=== PATIENT | female | born 2000 | race Caucasian/White ===

== ENCOUNTER 2019-01-28 09:31 | Emergency (ER) | payer BC, OTHER ==
[~2019-01-28] VITALS: Ht 160 cm; Wt 79.1 kg
[2019-01-28] MEDS ORDERED: OMEP-218 (09:38)
[2019-01-28 10:24] LABS: HEMATOCRIT 40.2 % (36.0-47.0); HEMOGLOBIN 13.4 g/dl (12.0-15.5); MEAN CORPUSCULAR HEMOGLOBIN 27.9 pg (27.0-33.0); MEAN CORPUSCULAR HGB CONC 33.3 g/dl (32.0-36.5); MEAN CORPUSCULAR VOLUME 83.8 fl (80.0-96.0); PLATELET COUNT, AUTOMATED 313 10^3/uL (150-450); WHITE BLOOD COUNT 5.7 10^3/uL (4.0-10.0)
[2019-01-28 10:38] LABS: AMPHETAMINES LEVEL URINE NEGATIVE (NEGATIVE); BARBITURATES URINE NEGATIVE (NEGATIVE); BENZODIAZEPINES URINE NEGATIVE (NEGATIVE); CANNABINOIDS URINE NEGATIVE (NEGATIVE); COCAINE METABOLITE URINE NEGATIVE (NEGATIVE); METHADONE URINE NEGATIVE (NEGATIVE); OPIATES URINE NEGATIVE (NEGATIVE); PHENCYCLIDINE URINE NEGATIVE (NEGATIVE)
[2019-01-28 11:17] LABS: ACETAMINOPHEN LEVEL < 2.0 UG/ML (10.0-30.0); ALBUMIN 3.8 GM/DL (3.2-5.2); ALT/SGPT 29 U/L (12-78); BILIRUBIN,DIRECT < 0.1 MG/DL (0.0-0.2); BILIRUBIN,TOTAL 0.3 MG/DL (0.2-1.0); BLOOD UREA NITROGEN 9 MG/DL (7-18); CALCIUM LEVEL 9.4 MG/DL (8.5-10.1); CARBON DIOXIDE LEVEL 24 MEQ/L (21-32); CHLORIDE LEVEL 109 MEQ/L (98-107); CREATININE FOR GFR 0.77 MG/DL (0.55-1.30); ETHYL ALCOHOL (ETHANOL) 0.003 % (0.000-0.010); GLUCOSE, FASTING 104 MG/DL (70-100); POTASSIUM SERUM 4.2 MEQ/L (3.5-5.1); SALICYLATE LEVEL < 1.7 MG/DL (5.0-30.0); SODIUM LEVEL 141 MEQ/L (136-145); THYROID STIMULATING HORMONE 0.364 uIU/ML (0.463-3.98); TOTAL PROTEIN 7.8 GM/DL (6.4-8.2)
[2019-01-28 11:47] LABS: HCG, SERUM QUALITATIVE NEGATIVE (NEGATIVE)
[2019-01-28 13:23] VITALS: BP 132/76
[2019-01-30] MEDS ORDERED: MECL-68 PO (17:23)
== END 2019-01-28 13:23 | disposition home or self-care (01) ==
LOC: M ED 09:31
DX: F33.9 Major depressive disorder, recurrent, unspecified (principal); Z88.1 Allergy status to other antibiotic agents
CPT/HCPCS: 36415; 80048; 80076; 80307; 84443; 84703; 85027; 99284; G0480

== ENCOUNTER 2019-01-30 08:07 | Emergency (ER) | payer OTHER ==
[~2019-01-30] VITALS: Ht 160 cm; Wt 77.3 kg
[~2019-01-30 08:07] MED LIST: OMEP-218
[2019-01-30] MEDS ORDERED: NS 1,000 ML IV SCH (08:34)
[2019-01-30] MEDS ORDERED: ALYA1TAB PO (08:53)
[2019-01-30 09:04] LABS: BASO # 0.1 10^3/uL (0.0-0.2); BASO % 1.3 % (0.0-1.0); EOS # 0.2 10^3/uL (0.0-0.50); EOS % 6.1 % (0.0-3.0); HEMATOCRIT 40.2 % (36.0-47.0); HEMOGLOBIN 13.3 g/dl (12.0-15.5); LYMPH % 25.2 % (24.0-44.0); MEAN CORPUSCULAR HEMOGLOBIN 27.8 pg (27.0-33.0); MEAN CORPUSCULAR HGB CONC 33.1 g/dl (32.0-36.5); MEAN CORPUSCULAR VOLUME 84.1 fl (80.0-96.0); MONO # 0.4 10^3/uL (0.0-0.8); MONO % 10.2 % (0.0-5.0); NEUTROPHILS # 2.3 10^3/uL (1.8-7.7); NEUTROPHILS % 57.2 % (36.0-66.0); PLATELET COUNT, AUTOMATED 251 10^3/uL (150-450); RED BLOOD COUNT 4.78 10^6/uL (4.00-5.40); WHITE BLOOD COUNT 3.9 10^3/uL (4.0-10.0)
--- NOTE | 2019-01-30 09:26 | REP ---
Clinical: Altered mental status . Comparison: None . Findings: The ventricles, sulci, and cisterns are normal in position and appearance. Salvador-white differentiation is maintained. No acute intracranial hemorrhage, mass/mass effect, pathology or trauma/injury. No evidence for acute infarction. No extra-axial fluid collection. Calvarium is intact. Paranasal sinuses and mastoid air cells are clear. Impression: Normal noncontrast head CT. No evidence for acute intracranial pathology or trauma/injury. Electronically Signed by Howie Lacey MD 01/30/2019 09:16 A
[2019-01-30 09:30] LABS: ACETAMINOPHEN LEVEL < 2.0 UG/ML (10.0-30.0); ALBUMIN 3.6 GM/DL (3.2-5.2); ALT/SGPT 25 U/L (12-78); BILIRUBIN,DIRECT < 0.1 MG/DL (0.0-0.2); BILIRUBIN,TOTAL 0.3 MG/DL (0.2-1.0); BLOOD UREA NITROGEN 9 MG/DL (7-18); CALCIUM LEVEL 8.8 MG/DL (8.5-10.1); CARBON DIOXIDE LEVEL 24 MEQ/L (21-32); CHLORIDE LEVEL 108 MEQ/L (98-107); CK-MB VALUE MASS < 1.0 NG/ML (<3.6); CPK CREATINE PHOSPHOKINASE 118 U/L (26-192); CREATININE FOR GFR 0.83 MG/DL (0.55-1.30); ETHYL ALCOHOL (ETHANOL) < 0.003 % (0.000-0.010); GLUCOSE, FASTING 104 MG/DL (70-100); MB/CK RELATIVE INDEX 0.85 (< OR =4); POTASSIUM SERUM 4.3 MEQ/L (3.5-5.1); SALICYLATE LEVEL < 1.7 MG/DL (5.0-30.0); SODIUM LEVEL 138 MEQ/L (136-145); THYROID STIMULATING HORMONE 0.566 uIU/ML (0.463-3.98); TOTAL PROTEIN 7.1 GM/DL (6.4-8.2); TROPONIN I < 0.02 NG/ML (< 0.10)
[2019-01-30 09:31] LABS: OSMOLALITY SERUM 287 MOSM/KG (275-295)
[2019-01-30] MEDS ORDERED: NS 1,000 ML IV ONE (11:00)
--- NOTE | 2019-01-30 12:51 | REP ---
MRI brain without contrast: History: Visual changes and vertigo. . Comparison study: Comparison head CT study is from earlier today. Technique: Axial and sagittal imaging planes are utilized for T1 and T2-weighted scans. Sequences include spin-echo, fast spin echo, FLAIR, and diffusion weighted sequences. MRI findings: No bony calvarial lesion is seen. Craniocervical junction and upper cervical cord are normal in appearance. There is no MR evidence of significant paranasal sinus disease. No intraorbital abnormality is seen. The lateral, third, and fourth ventricles are normal in size and position. Salvador-white differentiation pattern is intact above and below the tentorium. There is no evidence of intracranial hemorrhage. No mass, infarction, extra-axial fluid collection or midline shift is seen. No abnormal white matter lesion is seen. Impression: Negative noncontrast brain MRI study. Electronically Signed by Berto Wallace MD 01/30/2019 12:43 P
--- NOTE | 2019-01-30 12:52 | REP ---
MR angiography the brain without contrast: History: Vertigo and visual changes. Technique: 3-D [id number] MR angiography of the brain is acquired in the usual fashion and maximal intensity projection images were generated in rotational format about the vertical and horizontal axes. In addition, source axial T1-weighted images are viewed in cine mode. MR angiographic findings: The distal vertebral arteries are patent and co-dominant. Basilar artery is a little tortuous but widely patent. The posterior cerebral and superior cerebellar vessels are normal and symmetric. The distal internal carotid arteries are unremarkable. Anterior and middle cerebral arteries appear intact. There is no visible alonzo aneurysm or arteriovenous malformation. Impression: Unremarkable MR angiography the brain. Electronically Signed by Berto Wallace MD 01/30/2019 12:44 P
[2019-01-30] MEDS ORDERED: MECLIZINE 25 MG TABLET PO ONE (13:45)
[2019-01-30 15:50] LABS: AMPHETAMINES LEVEL URINE NEGATIVE (NEGATIVE); BARBITURATES URINE NEGATIVE (NEGATIVE); BENZODIAZEPINES URINE NEGATIVE (NEGATIVE); CANNABINOIDS URINE NEGATIVE (NEGATIVE); COCAINE METABOLITE URINE NEGATIVE (NEGATIVE); METHADONE URINE NEGATIVE (NEGATIVE); OPIATES URINE NEGATIVE (NEGATIVE); PHENCYCLIDINE URINE NEGATIVE (NEGATIVE)
--- NOTE | 2019-01-30 16:23 | REP ---
MRI lumbar spine without contrast: History: Urinary retention. Technique: Sagittal and axial T1 and T2-weighted scans are acquired in the usual fashion with and without fat saturation. Sequences include spin echo, turbo spin-echo, and STIR imaging sequences. MRI findings: Lumbar vertebral body heights are preserved. Alignment is normal. No fracture or collapse is seen. Pedicles and posterior elements are intact. There is no evidence of spondylolysis or spondylolisthesis. The conus medullaris is normal in position and appearance at T12. No extraspinal abnormality is appreciated. Disc spaces are maintained in height and signal intensity. No lumbar disc herniation is seen. Facets are unremarkable. No neural foraminal encroachment is appreciated. Impression: Normal MRI lumbar spine. Electronically Signed by Berto Wallace MD 01/30/2019 04:44 P
[2019-01-30] MEDS ORDERED: MECL1TAB31 PO (17:23)
[2019-01-30 18:00] VITALS: BP 131/70
--- NOTE | 2019-01-30 20:04 | ECGEPIP ---
[facility] - ED Test Date: 2019-01-30 Pat Name: AUTUMN BENSON Department: Room: - Gender: Female [employer] Drawer In: ab : 2000 Requested By: Marla Muir Order Number: [id number] Reading MD: Bravo Brandon Measurements Intervals [place] Rate: 108 P: 70 [place]: 154 QRS: 53 QRSD: 96 T: 14 QT: 302 QTc: 406 Interpretive Statements SINUS TACHYCARDIA NONSPECIFIC T-WAVE ABNORMALITY NO PRIORS FOR COMPARISON Electronically Signed on 01-30-2019 20:03:46 EDT by Bravo Brandon
[2019-02-01 14:13] LABS: Lyme Disease IgG/IgM Antibodie <0.91 ISR (0.00-0.90); Lyme Disease IgM Ab Quantitati <0.80 index (0.00-0.79)
== END 2019-01-30 18:09 | disposition home or self-care (01) ==
LOC: EDBD 08:07 → M ED 08:07
DX: R42 Dizziness and giddiness (principal); Z79.899 Other long term (current) drug therapy; Z79.3 Long term (current) use of hormonal contraceptives; Z88.1 Allergy status to other antibiotic agents
CPT/HCPCS: 36415; 70450; 70544; 70551; 72148; 80048; 80076; 80307; 82140; 82550; 82553; 83605; 83930; 84443; 84484; 84702; 85025; 86617; 93005; 93041; 94760; 99285; G0480

== ENCOUNTER → 2019-02-03 | Outpatient (REF) | payer OTHER ==
[~2019-02-03] MED LIST changes: +ALYA1TAB PO; +MECL-68 PO
[2019-02-03 20:54] LABS: RHEUMATOID FACTOR QUANT < 10.0 IU/ML (<15.0); TOTAL PROTEIN 7.4 GM/DL (6.4-8.2)
[2019-02-03 21:03] LABS: VITAMIN B12 LEVEL 648 PG/ML
[2019-02-03 21:36] LABS: FOLATE 15.2 NG/ML
[2019-02-04 14:47] LABS: ALBUMIN % 55.4 % (55.8-66.1); ALPHA-1-GLOBULINS 0.37 GM/DL (0.17-0.41); ALPHA-2-GLOBULINS % 12.1 % (7.1-11.8); BETA-1-GLOBULINS 0.57 GM/DL (0.28-0.60); BETA-1-GLOBULINS % 7.7 % (4.7-7.2); BETA-2-GLOBULINS 0.34 GM/DL (0.19-0.55); BETA-2-GLOBULINS % 4.6 % (3.2-6.5); GAMMA GLOBULIN % 15.2 % (11.1-18.8); GAMMA GLOBULINS 1.12 GM/DL (0.65-1.58)
[2019-02-12 14:29] LABS: ANTI DS-DNA AB <1:10 titer (.); ANTINUCLEAR ANTIBODIES DIRECT Negative (Negative); CERULOPLASMIN 41.6 mg/dL (19.0-39.0); COPPER PLASMA 183 ug/dL (72-166); LEAD BLOOD ADULT <1 ug/dL (0-4); MERCURY LEVEL None Detected ug/L (0.0-14.9); SJOGREN'S ANTI SS-A <0.2 AI (0.0-0.9); SJOGREN'S ANTI SS-B <0.2 AI (0.0-0.9); VITAMIN B1 LEVEL WHOLE BLOOD 141.5 nmol/L (66.5-200.0); VITAMIN B6,PYRIDOXAL PHOSPHATE 12.7 ug/L (2.0-32.8); VITAMIN E(ALPHA TOCOPHEROL) 9.6 mg/L (5.0-13.2); VITAMIN E(GAMMA TOCOPHEROL) 1.5 mg/L (0.8-3.8)
== END ==
LOC: M LABNEURO 14:07
PROVIDERS: ATTEND Psychiatry & Neurology Neurology
DX: M10.9 Gout, unspecified (principal); R42 Dizziness and giddiness; R26.89 Other abnormalities of gait and mobility

== ENCOUNTER → 2019-03-05 | Outpatient (REF) | payer OTHER ==
[2019-03-05 19:48] LABS: CHLAMYDIA DNA AMPLIFICATION NEGATIVE (NEGATIVE); GC DNA AMPLIFICATION NEGATIVE (NEGATIVE)
== END ==
LOC: M LAB REF 16:32
PROVIDERS: ATTEND Nurse Practitioner Family
DX: R30.0 Dysuria (principal)

== ENCOUNTER 2019-05-18 11:30 | Emergency (ER) | payer OTHER ==
[~2019-05-18] VITALS: Ht 160 cm; Wt 80.7 kg
[2019-05-18] MEDS ORDERED: SPRI28TA PO (11:36)
[2019-05-18] MEDS ORDERED: CITA10TA5 PO (11:36)
[2019-05-18] MEDS ORDERED: diphenhydrAMINE INJ 50MG/ML VIAL (J1200) IV STA (11:47)
[2019-05-18] MEDS ORDERED: methylPREDNISolone INJ 125 MG/2 ML VIAL (J2930) As Ordered ONE (11:49)
[2019-05-18] MEDS ORDERED: diphenhydrAMINE INJ 50MG/ML VIAL (J1200) As Ordered ONE (11:49)
[2019-05-18] MEDS ORDERED: FAMOTIDINE INJ 20MG/2ML VIAL (S0028) As Ordered ONE (11:50)
[2019-05-18] MEDS ORDERED: FAMOTIDINE INJ 20MG/2ML VIAL (S0028) IVP ONE (12:00)
[2019-05-18] MEDS ORDERED: methylPREDNISolone INJ 125 MG/2 ML VIAL (J2930) IV ONE (12:00)
[2019-05-18] MEDS ORDERED: ONDANSETRON 4MG/2ML VIAL (J2405) As Ordered ONE (12:30)
[2019-05-18] MEDS ORDERED: ONDANSETRON 4MG/2ML VIAL (J2405) IV ONE (13:00)
[2019-05-18] MEDS ORDERED: ALPRAZolam 0.25 MG TAB PO ONE (13:30)
[2019-05-18] MEDS ORDERED: BENA25CA4 PO (13:59)
[2019-05-18 14:18] VITALS: BP 101/56
== END 2019-05-18 14:19 | disposition home or self-care (01) ==
LOC: M ED 11:30
DX: T78.1XXA Other adverse food reactions, not elsewhere classified, initial encounter (principal); Y92.9 Unspecified place or not applicable; Y93.9 Activity, unspecified; F32.9 Major depressive disorder, single episode, unspecified; Z79.899 Other long term (current) drug therapy; Z88.1 Allergy status to other antibiotic agents
CPT/HCPCS: 96374; 96375; 99284; J1200; J2405; J2930

== ENCOUNTER 2019-05-25 21:57 | Emergency (ER) | payer OTHER ==
[~2019-05-25] VITALS: Ht 160 cm; Wt 81.8 kg
[~2019-05-25 21:57] MED LIST changes: +BENA25CA4 PO; +CITA10TA5 PO; +SPRI28TA PO
[2019-05-25] MEDS ORDERED: methylPREDNISolone INJ 125 MG/2 ML VIAL (J2930) IV ONE (22:15)
[2019-05-25] MEDS ORDERED: NS 1,000 ML IV ONE (22:15)
[2019-05-25] MEDS ORDERED: FAMOTIDINE INJ 20MG/2ML VIAL (S0028) IVP ONE (22:15)
[2019-05-25] MEDS ORDERED: hydrOXYzine 25 MG TAB PO STA (23:26)
[2019-05-26] MEDS ORDERED: PRED20TA PO (01:09)
[2019-05-26 01:16] VITALS: BP 131/54
== END 2019-05-26 01:22 | disposition home or self-care (01) ==
LOC: M ED 21:57
DX: T78.1XXA Other adverse food reactions, not elsewhere classified, initial encounter (principal); J44.9 Chronic obstructive pulmonary disease, unspecified; Z79.899 Other long term (current) drug therapy
CPT/HCPCS: 96374; 96375; 99284; J2930

== ENCOUNTER 2019-06-02 23:12 | Emergency (ER) | payer OTHER ==
[~2019-06-02] VITALS: Ht 160 cm; Wt 180.0 kg
[~2019-06-02 23:12] MED LIST changes: +PRED20TA PO
[2019-06-03] MEDS ORDERED: NS 1,000 ML IV ONE
[2019-06-03] MEDS ORDERED: FAMOTIDINE IV BAG 20 MG in IV 1 EA IV ONE ×2
[2019-06-03] MEDS ORDERED: diphenhydrAMINE INJ 50MG/ML VIAL (J1200) IV ONE
[2019-06-03] MEDS ORDERED: methylPREDNISolone INJ 125 MG/2 ML VIAL (J2930) IV ONE
[2019-06-03] MEDS ORDERED: PRED20TA PO (03:05)
[2019-06-03 03:20] VITALS: BP 124/73
== END 2019-06-03 03:33 | disposition home or self-care (01) ==
LOC: M ED 23:12
DX: L29.9 Pruritus, unspecified (principal); R22.0 Localized swelling, mass and lump, head; T78.40XA Allergy, unspecified, initial encounter; X58.XXXA Exposure to other specified factors, initial encounter; Y92.89 Other specified places as the place of occurrence of the external cause; Z88.1 Allergy status to other antibiotic agents; Z79.3 Long term (current) use of hormonal contraceptives; Z91.011 Allergy to milk products
CPT/HCPCS: 96365; 96366; 96375; 99285; J1200; J2930

== ENCOUNTER → 2019-06-11 | Outpatient (CLI) | payer OTHER ==
[2019-06-11 13:54] LABS: BASO % 0.2 % (0.0-1.0); EOS # 0.1 10^3/uL (0.0-0.5); EOS % 2.9 % (0.0-3.0); HEMATOCRIT 43.4 % (36.0-47.0); HEMOGLOBIN 13.8 g/dl (12.0-15.5); LYMPH # 1.6 10^3/uL (1.5-5.0); LYMPH % 33.9 % (24.0-44.0); MEAN CORPUSCULAR HEMOGLOBIN 27.2 pg (27.0-33.0); MEAN CORPUSCULAR HGB CONC 31.8 g/dl (32.0-36.5); MEAN CORPUSCULAR VOLUME 85.6 fl (80.0-96.0); MONO # 0.4 10^3/uL (0.0-0.8); MONO % 9.1 % (0.0-5.0); NEUTROPHILS # 2.6 10^3/uL (1.5-8.5); NEUTROPHILS % 53.7 % (36.0-66.0); PLATELET COUNT, AUTOMATED 239 10^3/uL (150-450); RED BLOOD COUNT 5.07 10^6/uL (4.00-5.40); WHITE BLOOD COUNT 4.8 10^3/uL (4.0-10.0)
[2019-06-11 14:08] LABS: ALBUMIN 3.7 GM/DL (3.2-5.2); ALT/SGPT 24 U/L (12-78); BILIRUBIN,TOTAL 0.5 MG/DL (0.2-1.0); BLOOD UREA NITROGEN 14 MG/DL (7-18); CALCIUM LEVEL 9.4 MG/DL (8.5-10.1); CARBON DIOXIDE LEVEL 26 MEQ/L (21-32); CHLORIDE LEVEL 107 MEQ/L (98-107); COMPLEMENT C3 132 MG/DL (90-180); COMPLEMENT C4 23 MG/DL (10-40); CREATININE FOR GFR 0.71 MG/DL (0.55-1.30); GLUCOSE, FASTING 94 MG/DL (70-100); POTASSIUM SERUM 4.5 MEQ/L (3.5-5.1); RHEUMATOID FACTOR QUANT < 10.0 IU/ML (<15.0); SODIUM LEVEL 139 MEQ/L (136-145); THYROID STIMULATING HORMONE 0.221 uIU/ML (0.463-3.98); THYROXINE (T4) 11.4 UG/DL (6.0-11.6); TOTAL PROTEIN 7.1 GM/DL (6.4-8.2)
[2019-06-11 14:11] LABS: THYROID PEROXIDASE ANTIBODY < 28.0 U/ML (<60.0)
[2019-06-11 14:12] LABS: THYROGLOBULIN ANTIBODY 15.2 U/ML (<60.0)
[2019-06-11 14:33] LABS: ERYTHROCYTE SEDIMENTATION RATE 7 mm/hr (0-20)
== END ==
LOC: M SMT 11:00
PROVIDERS: ATTEND Allergy & Immunology Allergy
DX: L50.1 Idiopathic urticaria (principal)

== ENCOUNTER 2019-10-05 17:52 | Emergency (ER) | payer BC, OTHER ==
[~2019-10-05] VITALS: Ht 160 cm; Wt 81.4 kg
[2019-10-05 17:52] VITALS: BP 141/85
[~2019-10-05 17:52] MED LIST changes: -MECL-68 PO; +MECL1TAB31 PO
--- NOTE | 2019-10-06 08:03 | REP ---
RIGHT KNEE, FIVE VIEWS: There is no evidence of an acute fracture, dislocation or intrinsic bone disease. There is some mild irregularity of the medial patellar facet, which is likely postsurgical as per patient history. IMPRESSION: No fracture or dislocation. Electronically Signed by Godwin Salvador MD 10/06/2019 01:22 P
== END 2019-10-05 20:01 | disposition home or self-care (01) ==
LOC: M ED 17:52
DX: S80.01XA Contusion of right knee, initial encounter (principal); W01.0XXA Fall on same level from slipping, tripping and stumbling without subsequent striking against object, initial encounter; Y92.019 Unspecified place in single-family (private) house as the place of occurrence of the external cause; K21.9 Gastro-esophageal reflux disease without esophagitis; Z88.1 Allergy status to other antibiotic agents; Z91.011 Allergy to milk products; Z79.899 Other long term (current) drug therapy

== ENCOUNTER 2020-02-02 18:48 | Emergency (ER) | payer BC, SELFPAY ==
[~2020-02-02] VITALS: Ht 160 cm; Wt 81.0 kg
[2020-02-02] MEDS ORDERED: NORT1TAB3 (18:54)
[2020-02-02] MEDS ORDERED: HYDR-3363 (18:54)
[2020-02-02] MEDS ORDERED: NS 1,000 ML IV ONE (20:15)
[2020-02-02 20:41] LABS: BASO % 0.7 % (0.0-1.0); EOS # 0.2 10^3/uL (0.0-0.5); EOS % 3.9 % (0.0-3.0); HEMATOCRIT 42.4 % (36.0-47.0); HEMOGLOBIN 14.2 g/dl (12.0-15.5); LYMPH % 36.1 % (24.0-44.0); MEAN CORPUSCULAR HEMOGLOBIN 28.7 pg (27.0-33.0); MEAN CORPUSCULAR HGB CONC 33.5 g/dl (32.0-36.5); MEAN CORPUSCULAR VOLUME 85.8 fl (80.0-96.0); MONO # 0.5 10^3/uL (0.0-0.8); MONO % 8.7 % (0.0-5.0); NEUTROPHILS # 2.7 10^3/uL (1.5-8.5); NEUTROPHILS % 50.4 % (36.0-66.0); PLATELET COUNT, AUTOMATED 227 10^3/uL (150-450); RED BLOOD COUNT 4.94 10^6/uL (4.00-5.40); WHITE BLOOD COUNT 5.4 10^3/uL (4.0-10.0)
[2020-02-02 20:57] LABS: ALBUMIN 3.7 GM/DL (3.2-5.2); BILIRUBIN,DIRECT 0.2 MG/DL (0.0-0.2); BILIRUBIN,TOTAL 0.4 MG/DL (0.2-1.0); TOTAL PROTEIN 7.4 GM/DL (6.4-8.2)
[2020-02-02 22:34] VITALS: BP 124/75
== END 2020-02-02 22:40 | disposition home or self-care (01) ==
LOC: M ED 18:48
DX: R30.0 Dysuria (principal); R31.29 Other microscopic hematuria; Z79.899 Other long term (current) drug therapy; Z88.8 Allergy status to other drugs, medicaments and biological substances

== ENCOUNTER → 2020-05-24 | Outpatient (CLI) | payer OTHER ==
[~2020-05-24] MED LIST changes: +HYDR-3363; +NORT1TAB3
[2020-05-24 11:32] LABS: HEMATOCRIT 42.1 % (36.0-47.0); HEMOGLOBIN 13.7 g/dl (12.0-15.5); MEAN CORPUSCULAR HEMOGLOBIN 28.8 pg (27.0-33.0); MEAN CORPUSCULAR HGB CONC 32.5 g/dl (32.0-36.5); MEAN CORPUSCULAR VOLUME 88.6 fl (80.0-96.0); PLATELET COUNT, AUTOMATED 255 10^3/uL (150-450); RED BLOOD COUNT 4.75 10^6/uL (4.00-5.40); WHITE BLOOD COUNT 6.3 10^3/uL (4.0-10.0)
[2020-05-24 12:19] LABS: ALBUMIN 3.7 GM/DL (3.2-5.2); ALT/SGPT 24 U/L (12-78); BILIRUBIN,TOTAL 0.3 MG/DL (0.2-1.0); BLOOD UREA NITROGEN 15 MG/DL (7-18); CALCIUM LEVEL 8.9 MG/DL (8.5-10.1); CARBON DIOXIDE LEVEL 27 MEQ/L (21-32); CHLORIDE LEVEL 107 MEQ/L (98-107); GLUCOSE, FASTING 75 MG/DL (70-100); SODIUM LEVEL 140 MEQ/L (136-145); THYROID STIMULATING HORMONE 0.445 uIU/ML (0.463-3.98); TOTAL PROTEIN 7.2 GM/DL (6.4-8.2)
== END ==
LOC: M LAB 08:55
PROVIDERS: ATTEND Internal Medicine
DX: F33.1 Major depressive disorder, recurrent, moderate (principal); F41.9 Anxiety disorder, unspecified; Z79.899 Other long term (current) drug therapy

== ENCOUNTER 2021-03-05 08:19 | Emergency (ER) | payer OTHER ==
[~2021-03-05] VITALS: Ht 162.6 cm; Wt 98.6 kg
[~2021-03-05 08:19] MED LIST changes: -CITA10TA5 PO; +CITA10TA7 PO; +OMEP-173; -OMEP-218
[2021-03-05] MEDS ORDERED: KELN1TAB (08:27)
[2021-03-05] MEDS ORDERED: CITA20TA6 (08:27)
[2021-03-05] MEDS ORDERED: ONDANSETRON 4MG/2ML VIAL IV ONE (09:05)
[2021-03-05] MEDS ORDERED: NS 1,000 ML IV ONE (09:05)
[2021-03-05 09:44] LABS: BASO # 0.1 10^3/uL (0.0-0.2); BASO % 0.7 % (0.0-1.0); EOS # 0.3 10^3/uL (0.0-0.5); EOS % 3.9 % (0.0-3.0); HEMOGLOBIN 14.5 g/dl (12.0-15.5); LYMPH # 2.3 10^3/uL (1.5-5.0); LYMPH % 25.9 % (24.0-44.0); MEAN CORPUSCULAR HEMOGLOBIN 29.1 pg (27.0-33.0); MEAN CORPUSCULAR HGB CONC 33.7 g/dl (32.0-36.5); MEAN CORPUSCULAR VOLUME 86.3 fl (80.0-96.0); MONO # 0.5 10^3/uL (0.0-0.8); MONO % 6.1 % (2.0-8.0); NEUTROPHILS # 5.6 10^3/uL (1.5-8.5); NEUTROPHILS % 63.2 % (36.0-66.0); PLATELET COUNT, AUTOMATED 261 10^3/uL (150-450); RED BLOOD COUNT 4.98 10^6/uL (4.00-5.40); WHITE BLOOD COUNT 8.8 10^3/uL (4.0-10.0)
[2021-03-05 10:21] LABS: ALT/SGPT 33 U/L (12-78); BILIRUBIN,DIRECT < 0.1 MG/DL (0.0-0.2); BILIRUBIN,TOTAL 0.3 MG/DL (0.2-1.0); BLOOD UREA NITROGEN 19 MG/DL (7-18); CALCIUM LEVEL 9.7 MG/DL (8.5-10.1); CARBON DIOXIDE LEVEL 28 MEQ/L (21-32); CHLORIDE LEVEL 106 MEQ/L (98-107); CREATININE FOR GFR 0.69 MG/DL (0.55-1.30); GLOMERULAR FILTRATION RATE > 60.0 (>60); GLUCOSE, FASTING 96 MG/DL (70-100); LIPASE 111 U/L (73-393); POTASSIUM SERUM 4.5 MEQ/L (3.5-5.1); SODIUM LEVEL 137 MEQ/L (136-145); TOTAL PROTEIN 8.3 GM/DL (6.4-8.2)
[2021-03-05 10:25] LABS: HCG, SERUM QUALITATIVE NEGATIVE (NEGATIVE)
[2021-03-05 11:15] VITALS: BP 117/62
== END 2021-03-05 11:17 | disposition home or self-care (01) ==
LOC: M ED 08:19
DX: K59.00 Constipation, unspecified (principal); L29.0 Pruritus ani; E03.9 Hypothyroidism, unspecified; Z88.8 Allergy status to other drugs, medicaments and biological substances
CPT/HCPCS: 36415; 80048; 80076; 81001; 83690; 84703; 85025; 87086; 96374; 99284; J2405

== ENCOUNTER 2021-07-04 14:57 | Outpatient (RCR) | payer OTHER ==
[~2021-07-04 14:57] MED LIST changes: +CITA20TA6; +KELN1TAB
== END 2021-07-05 | disposition home or self-care (01) ==
LOC: M PT 14:57
PROVIDERS: ATTEND Internal Medicine
DX: M54.59 Other low back pain (principal)

== ENCOUNTER 2021-07-11 14:51 | Outpatient (RCR) | payer OTHER ==
[~2021-07-11 14:51] MED LIST changes: +CITA10TA5 PO; -CITA10TA7 PO; -OMEP-173; +OMEP-218
== END 2021-08-05 ==
LOC: M PT 14:51
DX: M54.50 Low back pain, unspecified (principal)

== ENCOUNTER 2021-10-07 14:06 | Emergency (ER) | payer SELFPAY ==
[~2021-10-07] VITALS: Ht 160 cm; Wt 99.3 kg
[~2021-10-07 14:06] MED LIST changes: -CITA10TA5 PO; +CITA10TA7 PO; +OMEP-173; -OMEP-218
[2021-10-07 14:07] VITALS: BP 128/71
[2021-10-07] MEDS ORDERED: GABA-1171 (14:14)
[2021-10-07] MEDS ORDERED: BACL10TA2 (14:14)
[2021-10-07] MEDS ORDERED: TRI-TAB (14:14)
== END 2021-10-07 15:34 | disposition left against medical advice (07) ==
LOC: M ED 14:06
DX: Z53.21 Procedure and treatment not carried out due to patient leaving prior to being seen by health care provider (principal)

== ENCOUNTER 2021-11-11 11:59 | Emergency (ER) | payer SELFPAY ==
[~2021-11-11] VITALS: Ht 160 cm; Wt 95.5 kg
[2021-11-11 11:59] VITALS: BP 135/74
[~2021-11-11 11:59] MED LIST changes: +BACL10TA2; +GABA-1171; +TRI-TAB
== END 2021-11-11 13:33 | disposition left against medical advice (07) ==
LOC: M ED 11:59
DX: Z53.21 Procedure and treatment not carried out due to patient leaving prior to being seen by health care provider (principal)

== ENCOUNTER 2022-06-25 19:32 | Emergency (ER) | payer OTHER, SELFPAY ==
[~2022-06-25] VITALS: Ht 162.6 cm; Wt 105.2 kg
[2022-06-26] MEDS ORDERED: predniSONE 20 MG TAB PO ONE (00:05)
[2022-06-26] MEDS ORDERED: PRED10TA2 PO (00:07)
[2022-06-26 00:28] VITALS: BP 132/78
== END 2022-06-26 01:28 | disposition home or self-care (01) ==
LOC: M ED 19:32
DX: M51.26 Other intervertebral disc displacement, lumbar region (principal); W01.0XXA Fall on same level from slipping, tripping and stumbling without subsequent striking against object, initial encounter; Y99.0 Civilian activity done for income or pay; E03.9 Hypothyroidism, unspecified; Z88.8 Allergy status to other drugs, medicaments and biological substances; Z79.899 Other long term (current) drug therapy

== ENCOUNTER → 2022-07-11 | Outpatient (CLI) | payer OTHER ==
[~2022-07-11] MED LIST changes: +PRED10TA2 PO
== END ==
LOC: M SOG 14:30
PROVIDERS: ATTEND Orthopaedic Surgery
DX: M51.36 Other intervertebral disc degeneration, lumbar region (principal)

== ENCOUNTER 2022-09-24 12:03 | Emergency (ER) | payer OTHER ==
[~2022-09-24] VITALS: Ht 160 cm; Wt 98.0 kg
[2022-09-24] MEDS ORDERED: D 50CAP2 (12:13)
[2022-09-24] MEDS ORDERED: METF500T13 PO (12:13)
[2022-09-24 13:12] VITALS: BP 128/83
== END 2022-09-24 13:19 | disposition home or self-care (01) ==
LOC: M ED 12:03
DX: G56.02 Carpal tunnel syndrome, left upper limb (principal); K21.9 Gastro-esophageal reflux disease without esophagitis; E03.9 Hypothyroidism, unspecified; Z88.1 Allergy status to other antibiotic agents; Z88.6 Allergy status to analgesic agent; Z79.899 Other long term (current) drug therapy; Z79.84 Long term (current) use of oral hypoglycemic drugs

== ENCOUNTER → 2022-10-10 | Outpatient (CLI) | payer OTHER ==
[~2022-10-10] MED LIST changes: +D 50CAP2; +METF500T13 PO
== END ==
LOC: M SOG 08:05
PROVIDERS: ATTEND Orthopaedic Surgery
DX: M79.642 Pain in left hand (principal)

== ENCOUNTER → 2022-11-11 | Outpatient (CLI) | payer OTHER | LOC: M RAD 08:30 | PROVIDERS: ATTEND Orthopaedic Surgery | DX: M25.532 Pain in left wrist (principal) ==

== ENCOUNTER 2023-11-29 12:31 | Inpatient (IN) | payer OTHER ==
[~2023-11-29] VITALS: Ht 160 cm; Wt 95.1 kg
[~2023-11-29 12:31] MED LIST changes: +MECL-209 PO; -MECL1TAB31 PO
[2023-11-29] MEDS ORDERED: BUPR150T12 PO (12:44)
[2023-11-29] MEDS ORDERED: CITA20TA7 PO (12:44)
[2023-11-29 13:35] LABS: HEMATOCRIT 43.2 % (36.0-47.0); HEMOGLOBIN 14.6 g/dl (12.0-15.5); MEAN CORPUSCULAR HEMOGLOBIN 29.1 pg (27.0-33.0); MEAN CORPUSCULAR HGB CONC 33.8 g/dl (32.0-36.5); MEAN CORPUSCULAR VOLUME 86.1 fl (80.0-96.0); PLATELET COUNT, AUTOMATED 247 10^3/uL (150-450); RED BLOOD COUNT 5.02 10^6/uL (4.00-5.40); WHITE BLOOD COUNT 5.9 10^3/uL (4.0-10.0)
[2023-11-29 13:46] LABS: AMPHETAMINES LEVEL URINE NEGATIVE (NEGATIVE); BARBITURATES URINE NEGATIVE (NEGATIVE); BENZODIAZEPINES URINE NEGATIVE (NEGATIVE); CANNABINOIDS URINE NEGATIVE (NEGATIVE); COCAINE METABOLITE URINE NEGATIVE (NEGATIVE); METHADONE URINE NEGATIVE (NEGATIVE); OPIATES URINE NEGATIVE (NEGATIVE); PHENCYCLIDINE URINE NEGATIVE (NEGATIVE)
[2023-11-29 14:09] LABS: ETHYL ALCOHOL (ETHANOL) < 0.003 % (0.000-0.010)
[2023-11-29 14:10] LABS: HCG, SERUM QUALITATIVE NEGATIVE (NEGATIVE)
[2023-11-29 14:11] LABS: ALBUMIN 4.2 G/DL (3.2-5.2); ALKALINE PHOSPHATASE 67 U/L (46-116); ALT/SGPT 18 U/L (7.0-40); AST/SGOT 10 U/L (<34); BILIRUBIN,DIRECT 0.2 MG/DL (<0.4); BILIRUBIN,TOTAL 0.4 MG/DL (0.3-1.2); BLOOD UREA NITROGEN 12 MG/DL (9-23); CARBON DIOXIDE LEVEL 26 MMOL/L (20-31); CHLORIDE LEVEL 103 MMOL/L (98-107); CREATININE FOR GFR 0.65 MG/DL (0.55-1.30); GLOMERULAR FILTRATION RATE > 60.0 (>60); GLUCOSE, FASTING 108 MG/DL (60-100); POTASSIUM SERUM 4.4 MMOL/L (3.5-5.1); SALICYLATE LEVEL < 3.0 MG/DL (<30); SODIUM LEVEL 137 MMOL/L (136-145); THYROID STIMULATING HORMONE 0.089 uIU/ML (0.55-4.78); TOTAL PROTEIN 7.2 G/DL (5.7-8.2)
[2023-11-29] MEDS ORDERED: MOM 30ML SUSPENSION UDC PO PRN (14:25)
[2023-11-29] MEDS ORDERED: MAALOX 30 ML SUSP *UDC PO PRN (14:25)
[2023-11-29] MEDS ORDERED: diphenhydrAMINE 25MG CAP PO PRN (14:25)
[2023-11-29 18:00] VITALS: BP 121/78; TEMP 98.2; O2SAT 100
[2023-11-29] MEDS ORDERED: ONDANSETRON 4MG TAB PO ONE (18:00)
[2023-11-29] MEDS: ONDANSETRON 4MG ORAL DISINTEGRATING TAB PO ONE (18:17)
[2023-11-29] MEDS: OLANZapine ORAL DISINTEGRATING TAB 5MG PO ONE (19:00)
[2023-11-29] MEDS: ACETAMINOPHEN TAB 650MG DOSE (2X325MG) PO PRN (20:48)
[2023-11-30 06:31] VITALS: BP 124/65; TEMP 98.7; O2SAT 99
[2023-11-30] MEDS ORDERED: ACET-897 PO (09:31)
[2023-11-30] MEDS ORDERED: HOME MED LIST COMPLETE! XX SCH (09:35)
[2023-11-30] MEDS: CitaloPRAM (CeleXA) 20 MG TAB PO SCH (10:11)
[2023-11-30] MEDS: buPROPion **XL** TABLET 150MG (WELLBUTRIN XL) PO SCH (10:11)
[2023-11-30] MEDS: metFORMIN (GLUCOPHAGE) 500MG TAB PO SCH (10:11)
[2023-11-30 16:38] LABS: FREE T3 3.6 PG/ML (2.3-4.2); FREE T4 1.27 NG/DL (0.89-1.76); THYROXINE (T4) 9.4 UG/DL (4.5-10.9)
[2023-11-30 17:24] VITALS: BP 138/70; TEMP 97.7; O2SAT 98
[2023-11-30] MEDS ORDERED: GLUCAGON INJ 1MG VIAL SC PRN (18:45)
[2023-11-30] MEDS ORDERED: GLUCOSE 4 GM CHEW PO PRN (18:45)
[2023-11-30] MEDS ORDERED: DEXTROSE 50% 50ML SYRINGE IV PRN (18:45)
[2023-11-30] MEDS: INSULIN LISPRO (NovoLOG) PER UNIT SC SCH (20:14)
[2023-12-01 06:27] VITALS: BP 118/60; TEMP 97.4; O2SAT 100
[2023-12-01] MEDS: INSULIN LISPRO (NovoLOG) PER UNIT SC SCH (06:32)
[2023-12-01 15:52] VITALS: BP 119/71; TEMP 97.7; O2SAT 100
[2023-12-01] MEDS: traZODone 50 MG TAB PO PRN (20:21)
[2023-12-02 06:15] VITALS: BP 108/70; TEMP 97.1; O2SAT 98
[2023-12-02 18:15] VITALS: BP 118/67; TEMP 97.6; O2SAT 99
[2023-12-03 06:46] VITALS: BP 134/82; TEMP 98.2; O2SAT 99
[2023-12-03] MEDS ORDERED: TRAZ-252 PO (09:41)
== END 2023-12-03 14:37 | disposition home or self-care (01) | DRG 751 ==
LOC: M ED 12:31 → M ED INP 14:21 → M PSY 16:41
PROVIDERS: ADMIT Student in an Organized Health Care Education/Training Program; ATTEND Student in an Organized Health Care Education/Training Program
DX: F32.1 Major depressive disorder, single episode, moderate (principal); E11.9 Type 2 diabetes mellitus without complications; R45.851 Suicidal ideations; F10.10 Alcohol abuse, uncomplicated; F41.9 Anxiety disorder, unspecified; F60.3 Borderline personality disorder; Z88.8 Allergy status to other drugs, medicaments and biological substances